=== PATIENT | male | born 1945 | race African-American/Black ===

== ENCOUNTER 2017-11-05 16:16 | Inpatient (IN) | payer OTHER ==
[~2017-11-05] VITALS: Ht 167.6 cm; Wt 96.2 kg
[~2017-11-05 16:16] MED LIST: ALLOPURINOL300 M1 PO; AMLODIPINE BESY10 M1 PO; BENTYL10 MG PO; FAMOTIDINE20 M1 PO; METFORMIN HCL500 M3 PO; PERCOCET 5-3251 EACH PO; ZOFRAN4 M1 SL
--- NOTE | 2017-11-05 16:56 | ED CARDIAC/CP/PALPITATIONS ---
History of Present Illness General Chief Complaint: Chest Pain Stated Complaint: "CP" Source: patient, family, old records Exam Limitations: no limitations Vital Signs & Intake/Output Vital Signs & Intake/Output Vital Signs Date Time Temp Pulse Resp B/P B/P Pulse O2 O2 Flow FiO2 Mean Ox Delivery Rate 11/06 1130 97.8 63 20 138/58 96 Room Air 11/06 0954 97.0 68 20 137/65 96 11/06 0945 97.0 68 20 137/65 11/06 0945 97.0 68 20 137/65 11/06 0945 97.0 68 20 137/65 11/06 0817 98.4 60 20 128/65 98 Room Air 11/06 0537 98.0 72 18 138/75 98 Room Air 11/06 0534 98.0 11/06 0040 98.0 80 18 154/78 98 Room Air 11/05 2009 98.6 72 18 160/82 98 Room Air Room Air 11/05 1816 98.2 71 18 168/82 98 Room Air 11/05 1635 97.8 68 18 167/81 98 Room Air ED Intake and Output 11/06 0000 11/05 1200 Intake Total Output Total Balance Patient 96.162 kg Weight Allergies Coded Allergies: No Known Allergies (02/25/17) Reconcile Medications Allopurinol 300 MG TABLET 1 TAB PO DAILY GOUT (Reported) Amlodipine Besylate 10 MG TABLET 1 TAB PO DAILY HTN (Reported) Famotidine 20 MG TABLET 1 TAB PO BID GERD (Reported) Losartan/Hydrochlorothiazide (Losartan-Hctz 100-25 MG Tab) 100 MG-25 MG TABLET 1 TAB PO DAILY HTN (Reported) Metformin HCl 500 MG TABLET 1 TAB PO BID DIABETES (Reported) Triage Note: PT TO TRIAGE WITH HIS DAUGHTER PT STATES THAT HE HAS BEEN HAVING L SIDE CHEST PAIN, NON RADIATING THAT STARTED AROUND 330, DESCRIBES BURNING , STATES PAIN IS A LITTLE LESS AT THIS TIME . PT HAS A MONITOR ON THAT HE HAS BEEN WEARING SINCE AUGUST Triage Nurses Notes Reviewed? yes HPI: 72M PMH HTN, T2DM, active smoker presenting with chest pain. Patient had an implantable loop recorder placed 08/18/17 for recurrent syncope. He has since been scheduled for an outpatient stress test that was supposed to occur tomorrow. Today, he had sudden onset of mid-sternal 7/10 chest pain, non- radiating, not associated with SOB, diaphoresis, syncope, lightheadedness. His chest pain is slightly better now. He has not had any similar symptoms before. He has no other cardiac history. Past History Travel History Traveled to [place] past 21 day No Medical History Any Pertinent Medical History? 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 No Review of Systems Review of Systems Constitutional: Reports: no symptoms. EENTM: Reports: no symptoms. Respiratory: Reports: no symptoms. Cardiovascular: Reports: no symptoms. GI: Reports: no symptoms. Genitourinary: Reports: no symptoms. Musculoskeletal: Reports: no symptoms. Skin: Reports: no symptoms. Neurological/Psychological: Reports: no symptoms. Hematologic/Endocrine: Reports: no symptoms. Immunologic/Allergic: Reports: no symptoms. All Other Systems: Reviewed and Negative Physical Exam Physical Exam General Appearance: well developed/nourished, no apparent distress Head: atraumatic, normal appearance Eyes: Bilateral: normal appearance. Ears, Nose, Throat: hearing grossly normal Neck: normal inspection, supple, full range of motion Respiratory: normal breath sounds, no respiratory distress Cardiovascular: regular rate/rhythm Gastrointestinal: soft, non-tender Back: normal inspection Extremities: normal inspection, normal range of motion Neurologic/Psych: awake, alert, oriented x 3, normal mood/affect Skin: intact, normal color, warm/dry Core Measures ACS in differential dx? Yes CVA/TIA Diagnosis No Sepsis Present: No Sepsis Focused Exam Completed? No Progress Differential Diagnosis: AMI, aortic dissection, atrial fibrillation, cholecystitis, CHF/pulm edema, costochondritis, hyperkalemia, hypovolemia, hyperthyroid, hyperventilation, intracranial hemorrhage, musculoskeletal pain, myocarditis, pancreatitis, pericarditis, pneumonia, pneumothorax, PSVT, pulmonary embolism, PUD/GERD, PVCs/PACs, respiratory failure, rib fracture, sepsis, unstable angina, V-fib/V-Tach, WPW syndrome Plan of Care: Orders Procedure Date/time Status Heart Healthy Diet 11/06 L Active Heart Healthy Diet 11/06 B Complete PARTIAL THROMBOPLASTIN TIME 11/06 1615 Active Weight 11/06 1129 Active Vital Signs 11/06 1129 Active Teach/Educate 11/06 1129 Active Pain Treatment and Response 11/06 1129 Active Nutritional Intake, Monitor 11/06 1129 Active Isolation 11/06 1129 Active Intake & Output 11/06 1129 Active Patient Care Conference 11/06 1129 Active Activity/Ambulation 11/06 1129 Active PARTIAL THROMBOPLASTIN TIME 11/06 0900 Complete FingerStick- Glucose 11/06 0817 Active Change service to 11/06 0713 Active Heparin Drip- ACS 11/06 0605 Active TROPONIN LEVEL 11/06 0600 Complete MAGNESIUM 11/06 0600 Complete LIPID PANEL 11/06 0600 Complete CBC WITHOUT DIFFERENTIAL 11/06 0600 Complete BASIC ELECTROLYTES PLUS BUN&CR 11/06 0600 Complete EKG 11/06 0600 Active TROPONIN LEVEL 11/06 0045 Complete PARTIAL THROMBOPLASTIN TIME 11/06 0045 Complete EKG 11/06 0045 Active PHYSICIAN CONSULT 11/06 UNK Active Pathway - chart 11/05 205 Active House Staff 11/05 2054 Active Patient Data 11/05 1856 Active ED Holding Orders 11/05 1843 Active Admit to inpatient 11/05 1843 Active Vital Signs 11/05 1843 Active Code Status 11/05 1843 Active PARTIAL THROMBOPLASTIN TIME 11/05 1738 Complete PROTHROMBIN TIME 11/05 1738 Complete TROPONIN LEVEL 11/05 1631 Complete PHOSPHORUS 11/05 1631 Complete MAGNESIUM 11/05 1631 Complete COMPREHENSIVE METABOLIC PANEL 11/05 1631 Complete CBC WITHOUT DIFFERENTIAL 11/05 1631 Complete EKG 11/05 1618 Active VTE Mechanical Prophylaxis 11/05 UNK Active Telemetry/Reproducer 11/05 UNK Active Intake & Output 11/05 UNK Active Activity/Ambulation 11/05 UNK Active Current Medications Sig/Fior Start time Last Medication Dose Stop Time Status Admin Atorvastatin Calcium 40 MG 1700 11/06 1700 AC (Lipitor) Allopurinol 300 MG DAILY 11/06 0900 AC 11/06 (Zyloprim) 0945 Amlodipine Besylate 10 MG DAILY 11/06 0900 AC 11/06 (Norvasc) 0945 Aspirin Buffered 81 MG DAILY 11/06 0900 AC 11/06 (Ecotrin) 0945 Famotidine 20 MG BID 11/06 0900 AC 11/06 (Pepcid) 0945 Hydrochlorothiazide 25 MG DAILY 11/06 09 AC 11/06 (Hydrodiuril) 0945 Metoprolol Tartrate 12.5 MG BID 11/06 09 AC 11/06 (Lopressor) 0945 Acetaminophen 650 MG Q6P PRN 11/05 2100 AC 11/06 (Tylenol) 0534 Nitroglycerin 0.5 GM Q6 11/05 1800 AC 11/06 (Nitro-Bid) 0526 Heparin Sodium 25,000 UNIT Q24H 11/05 1745 AC 11/06 (Porcine) 1015 (Heparin) Sodium Chloride 500 ML Laboratory Tests 11/06/17 0908: APTT 91 H 11/06/17 0550: Anion Gap 7, Estimated GFR > 60, BUN/Creatinine Ratio 20.0, Magnesium 2.5 H, Troponin I < 0.01, Triglycerides 124, Cholesterol 203 H, LDL Cholesterol, Calc 141 H, HDL Cholesterol 38 L, Cholesterol/HDL Ratio 5 H, CBC w Diff NO MAN DIFF REQ, RBC 3.73 L, MCV 96.5 H, MCH 32.4 H, MCHC 33.6, RDW 14.1, MPV 8.4, Gran % 44.5, Lymphocytes % 41.1, Monocytes % 10.2 H, Eosinophils % 3.8, Basophils % 0.4, Absolute Granulocytes 3.5, Absolute Lymphocytes 3.2, Absolute Monocytes 0.8 H, Absolute Eosinophils 0.3, Absolute Basophils 0 11/06/17 0127: Troponin I < 0.01, APTT 50 H 11/05/17 2109: APTT Cancelled 11/05/17 1803: PT 11.2, INR 1.03, APTT 31 11/05/17 1737: Anion Gap 10, Estimated GFR > 60, BUN/Creatinine Ratio 22.7, Glucose 152 H, Calcium 9.9, Phosphorus 3.5, Magnesium 2.4 H, Total Bilirubin 0.4, AST 32, ALT 37, Alkaline Phosphatase 78, Troponin I < 0.01, Total Protein 7.9, Albumin 4.5, Globulin 3.4, Albumin/Globulin Ratio 1.3, CBC w Diff NO MAN DIFF REQ, RBC 3.83 L, MCV 96.7 H, MCH 32.9 H, MCHC 34.0, RDW 13.9, MPV 8.5, Gran % 63.3, Lymphocytes % 23.4, Monocytes % 10.2 H, Eosinophils % 2.8, Basophils % 0.3, Absolute Granulocytes 5.5, Absolute Lymphocytes 2.0, Absolute Monocytes 0.9 H, Absolute Eosinophils 0.2, Absolute Basophils 0 Diagnostic Imaging: Viewed by Me: Radiology Read. Discussed w/RAD: Radiology Read. Radiology Impression: PATIENT: NITA MARTINO PRESENT AGE: 72 PATIENT ACCOUNT NO: [id number] : 45 LOCATION: [facility] ORDERING PHYSICIAN: Nydia GUILLEN SERVICE DATE: 11/05/17 EXAM TYPE: RAD - XRY-CHEST XRAY, TWO VIEWS PA/LATERAL CHEST RADIOGRAPH CLINICAL INFORMATION: Chest pain. COMPARISON: Chest x-ray 09/06/2016 TECHNIQUE: 2 views of the chest were obtained. FINDINGS: Loop recorder. Symmetric lung inflation. There is no focal consolidation, pleural effusion, or pneumothorax. Uncoiled thoracic aorta and mild enlargement of the cardiac silhouette unchanged. No acute osseous findings. Chronic posttraumatic changes involving the right AC joint. IMPRESSION : No acute findings. DICTATED BY: Pascual Rea MD DATE/TIME DICTATED:11/05/171709 WELLNESS ASSISTANT:BERKLEY DATE/TIME TRANSCRIBED:11/05/171709 CONFIDENTIAL, DO NOT COPY WITHOUT APPROPRIATE AUTHORIZATION. <Electronically signed in Other Vendor System> SIGNED BY: Pascual Rea MD 11/05/171715 Initial ED EKG: NSR, diffuse non-specific T wave changes Departure Departure Disposition: STILL A PATIENT Condition: Stable Clinical Impression Primary Impression: Unstable angina Referrals: Roni Ni MD (PCP/Family) Departure Forms: Customer Survey General Discharge Information Admission Note Spoke With: Sid Rahman MD Documentation of Exam: Documentation of any treatments & extenuating circumstances including Concerns Regarding Discharge (functional status, medication knowledge or non-compliance, living conditions, etc.) that warrant an admission rather than observation: chest pain in high risk patient with EKG changes consistent with unstable angina , will admi to telemetry for heparin drip, aspirin, cardiology, possible cardiac cath tomorrow. Critical Care Note Critical Care Note Critical Care Time: non-applicable
--- NOTE | 2017-11-05 17:16 | RADIOLOGY REPORT ---
PA/LATERAL CHEST RADIOGRAPH CLINICAL INFORMATION: Chest pain. COMPARISON: Chest x-ray 09/06/2016 TECHNIQUE: 2 views of the chest were obtained. FINDINGS: Loop recorder. Symmetric lung inflation. There is no focal consolidation, pleural effusion, or pneumothorax. Uncoiled thoracic aorta and mild enlargement of the cardiac silhouette unchanged. No acute osseous findings. Chronic posttraumatic changes involving the right AC joint. IMPRESSION: No acute findings.
[2017-11-05 17:46] LABS: ABSOLUTE BASOPHIL COUNT 0 /CUMM (0.0-0.2); ABSOLUTE EOSINOPHIL COUNT 0.2 /CUMM (0.0-0.7); ABSOLUTE GRANULOCYTE CT 5.5 /CUMM (1.4-6.5); ABSOLUTE MONOCYTE COUNT 0.9 /CUMM (0.10-0.60); BASOPHIL % 0.3 % (0.0-2.0); EOSINOPHIL % 2.8 % (0-5); GRANULOCYTE % 63.3 % (42.2-75.2); MEAN CORPUSCULAR HGB 32.9 PG (27.0-31.0); MEAN CORPUSCULAR VOLUME 96.7 FL (80.0-94.0); MEAN PLATELET VOLUME 8.5 FL (7.4-10.4); PLATELET COUNT 291 /CUMM (130-400); RBC DISTRIBUTION WIDTH 13.9 % (11.5-14.5); RED BLOOD CELL CT 3.83 /CUMM (4.70-6.10); WHITE BLOOD CELL COUNT 8.6 /CUMM (4.8-10.8)
[2017-11-05 18:37] LABS: PT 11.2 SEC (9.4-12.5); PTT 31 SEC (25-37)
--- NOTE | 2017-11-05 19:35 | History & Physical ---
Chay Choe 11/05/171933: General Information and HPI MD Statement: I have seen and personally examined NITA MARTINO and documented this H&P. The patient is a 72 year old M who presented with a patient stated chief complaint of CHEST PAIN. Source of Information: patient, old records Exam Limitations: no limitations History of Present Illness: 72-year-old male with past medical history significant for hypertension, diabetes, gout, and GERD presents with complaints of acute onset, midsternal chest pain. The pain started while at rest at home this afternoon. Patient denies having ever experienced this type of pain before. He describes the pain as burning, nonradiating, 6 out of 10 pain without aggravating or relieving factors. Patient denies shortness of breath, diaphoresis, nausea, vomiting, palpitations, or presyncope. Denied all symptoms on review of systems. Of note he states he has had 4 syncopal episodes in the past year. He has been referred to Dr. Montoya, and has a Linq monitor in-place for arrhythmia evaluation. He was scheduled to undergo stress test tomorrow as an outpatient. In the ED, EKG showed some T-wave flattening in his chest pain improved with nitroglycerin. First troponin was negative. he was started on heparin gtt and admitted to telemetry for unstable angina. Allergies/Medications Allergies: Coded Allergies: No Known Allergies (02/25/17) Compliance With Home Meds: GOOD Past History Travel History Traveled to [place] past 21 day No Medical History Neurological: NONE EENT: NONE Cardiovascular: hypertension Respiratory: NONE Gastrointestinal: GERD Hepatic: NONE Renal: NONE Musculoskeletal: gout Psychiatric: NONE Endocrine: diabetes Blood Disorders: NONE Cancer(s): NONE COFFEE GRINDER/Reproductive: NONE Surgical History Surgical History: non-contributory Past Family/Social History Psychosocial History Where do you live? Home Who Do You Live With? self Services at Home: None Primary Language: Kinyarwanda Smoking Status: Current Everyday Smoker (x3 cigars) ETOH Use: occasional use Illicit Drug Use: denies illicit drug use Functional Ability ADLs Independent: dressing, eating, toileting, bathing. Ambulation: independent IADLs Independent: shopping, housework, finances, food prep, telephone, transportation , medication admin. 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 EENTM: Reports: no symptoms. Cardiovascular: Reports: chest pain. Denies: orthopena, palpitations, syncope. Respiratory: Denies: cough, orthopnea, short of breath. GI: Denies: abdominal pain, constipation, diarrhea, nausea, vomiting. Genitourinary: Denies: dysuria, frequency. Musculoskeletal: Reports: no symptoms. Skin: Reports: no symptoms. Neurological/Psychological: Reports: no symptoms. Hematologic/Endocrine: Reports: no symptoms. Immunologic/Allergic: Reports: no symptoms. All Other Systems: Reviewed and Negative Exam & Diagnostic Data Last 24 Hrs of Vital Signs/I&O Vital Signs Date Time Temp Pulse Resp B/P B/P Pulse O2 O2 Flow FiO2 Mean Ox Delivery Rate 11/05 2008 98.6 72 18 160/82 98 Room Air Room Air 11/05 1816 98.2 71 18 168/82 98 Room Air 11/05 1635 97.8 68 18 167/81 98 Room Air Intake & Output 11/06 0800 11/06 0000 11/05 1600 Intake Total Output Total Balance Patient 212 lb Weight Physical Exam General Appearance Alert, Oriented X3, Cooperative, No Acute Distress Skin No Rashes, No Breakdown, No Significant Lesion Skin Temp/Moisture Exam: Warm/Dry HEENT Atraumatic, PERRLA, EOMI, Mucous Membr. moist/pink Neck Supple, No JVD, No thryomegaly Cardiovascular Regular Rate, Normal S1, Normal S2, No Murmurs Lungs Clear to Auscultation, Normal Air Movement Abdomen Normal Bowel Sounds, Soft, No Tenderness, No Masses Extremities No Cyanosis, Normal Pulses, +1 nonpitting bilateral lower extremity edema Last 24 Hrs of Labs/Earnest: Laboratory Tests 11/05/172108: APTT Cancelled 11/05/17 1803: PT 11.2, INR 1.03, APTT 31 11/05/17 1737: Anion Gap 10, Estimated GFR > 60, BUN/Creatinine Ratio 22.7, Glucose 152 H, Calcium 9.9, Phosphorus 3.5, Magnesium 2.4 H, Total Bilirubin 0.4, AST 32, ALT 37, Alkaline Phosphatase 78, Troponin I < 0.01, Total Protein 7.9, Albumin 4.5, Globulin 3.4, Albumin/Globulin Ratio 1.3, CBC w Diff NO MAN DIFF REQ, RBC 3.83 L, MCV 96.7 H, MCH 32.9 H, MCHC 34.0, RDW 13.9, MPV 8.5, Gran % 63.3, Lymphocytes % 23.4, Monocytes % 10.2 H, Eosinophils % 2.8, Basophils % 0.3, Absolute Granulocytes 5.5, Absolute Lymphocytes 2.0, Absolute Monocytes 0.9 H, Absolute Eosinophils 0.2, Absolute Basophils 0 Diagnostic Data EKG Results Sinus rhythm w/ nonspecific lateral T wave flattening CXR Results No acute findings. Assessment/Plan Assessment: 72-year-old man with past medical history of hypertension, diabetes, gout, GERD who presents with acute onset midsternal chest pain. Problem list/plan: Acute chest pain -Admit to telemetry for monitoring -Vitals, I's and O's per protocol -Differential includes ACS (likely UA) and GERD -Initial troponin was negative -Trend troponins and EKGs -Start patient on heparin drip for anticoagulation -Start patient on atorvastatin and metoprolol for prophylaxis -Let Dr. Montoya know the patient is here to decide if consult needed Chronic conditions - HTN, GERD, gout -Continue home medications at home dosage: metformin, famotidine, allopurinol, amlodipine DVT prophylaxis: Heparin drip and ALPS Heart healthy diet Patient is full code As Ranked By This Provider Problem List: 1. Unstable angina Core Measures/Misc (12/04) Cerebrovascular Accident CVA/TIA Diagnosis: No Sepsis (View protocol) If YES complete Sepsis Event Note If YES complete Sepsis Event Note Osbaldo Arce MD 11/05/17 6247: General Information and HPI MD Statement: I have seen and personally examined NITA MARTINO and documented this H&P. The patient is a 72 year old M who presented with a patient stated chief complaint of chest pain. Source of Information: patient, old records Exam Limitations: no limitations History of Present Illness: 72 year old male with past medical history significant for HTN, DM, gout, and GERD presents with complaints of acute onset chest pain. The chest pain started while at rest at home this afternoon. He says hes never had any pain like it before. He described the pain as substernal, burning, nonradiating, 6/10 in intensity and without aggravating or relieving factors. He denied any associated dyspnea, diaphoresis, nausea, vomiting, palpitations, or presyncope. He denied anything on review of systems including fevers, chills, cough, sore throat, recent illness, edema, fatigue, diarrhea, or dysuria. Of note, he states he has had four syncopal episodes in the past year and was never evaluated at the hospital. He went and saw his primary, Dr. Ni, who referred him to Dr. Montoya. He had a Linq monitor implanted for arrhythmia evaluation but has never been told he had an irregular rhythm. He was undergoing stress testing to evaluate for myocardial ischemia and was scheduled for stress imaging tomorrow as an outpatient. His syncopal episodes were preceded by feeling lightheaded and nauseous and then waking up on the floor without recollection of what had happened. He is a current everyday smoker, 3 cigars, and drinks alcohol approximately 3 beers on the weekend. He has no known significant family history. In the ED, he had some T wave flattening on the lateral leads of his EKG and his chest pain improved after nitroglycerin and is now resolved. His first troponin was negative. He was started on a heparin drip and admitted to telemetry for unstable angina. 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 Home Who Do You Live With? self Services at Home: None Primary Language: Kinyarwanda Smoking Status: Current Everyday Smoker ETOH Use: occasional use Illicit Drug Use: denies illicit drug use Functional Ability ADLs Independent: dressing, eating, toileting, bathing. Ambulation: independent IADLs Independent: shopping, housework, finances, food prep, telephone, transportation , medication admin. Review of Systems Review of Systems Constitutional: Denies: chills, diaphoresis, fever, malaise. EENTM: Reports: no symptoms. Cardiovascular: Reports: chest pain, syncope. Denies: orthopena, palpitations. Respiratory: Denies: cough, short of breath. GI: Denies: abdominal pain, constipation, diarrhea, nausea, vomiting. Genitourinary: Denies: dysuria, frequency. Musculoskeletal: Reports: no symptoms. Skin: Reports: no symptoms. Neurological/Psychological: Reports: no symptoms. Hematologic/Endocrine: Reports: no symptoms. Immunologic/Allergic: Reports: no symptoms. All Other Systems: Reviewed and Negative Exam & Diagnostic Data Last 24 Hrs of Vital Signs/I&O Vital Signs Date Time Temp Pulse Resp B/P B/P Pulse O2 O2 Flow FiO2 Mean Ox Delivery Rate 11/05 2008 98.6 72 18 160/82 98 Room Air Room Air 11/05 1816 98.2 71 18 168/82 98 Room Air 11/05 1635 97.8 68 18 167/81 98 Room Air Physical Exam General Appearance Alert, Oriented X3, Cooperative, No Acute Distress Neck Supple, No JVD, +2 Carotid Pulse wo Bruit Cardiovascular Regular Rate, Normal S1, Normal S2, No Murmurs Lungs Clear to Auscultation, Normal Air Movement Abdomen Normal Bowel Sounds, Soft, No Tenderness, No Masses Extremities No Clubbing, No Cyanosis, Normal Pulses, mild b/l LE edema Last 24 Hrs of Labs/Earnest: Laboratory Tests 11/05/17 2109: APTT Cancelled 11/05/17 1803: PT 11.2, INR 1.03, APTT 31 11/05/17 1737: Anion Gap 10, Estimated GFR > 60, BUN/Creatinine Ratio 22.7, Glucose 152 H, Calcium 9.9, Phosphorus 3.5, Magnesium 2.4 H, Total Bilirubin 0.4, AST 32, ALT 37, Alkaline Phosphatase 78, Troponin I < 0.01, Total Protein 7.9, Albumin 4.5, Globulin 3.4, Albumin/Globulin Ratio 1.3, CBC w Diff NO MAN DIFF REQ, RBC 3.83 L, MCV 96.7 H, MCH 32.9 H, MCHC 34.0, RDW 13.9, MPV 8.5, Gran % 63.3, Lymphocytes % 23.4, Monocytes % 10.2 H, Eosinophils % 2.8, Basophils % 0.3, Absolute Granulocytes 5.5, Absolute Lymphocytes 2.0, Absolute Monocytes 0.9 H, Absolute Eosinophils 0.2, Absolute Basophils 0 Diagnostic Data EKG Results sinus rhythm with lateral T wave flattening Assessment/Plan Assessment: 72 year old male with PMH of HTN and DM presents with acute onset substernal chest pain relieved with nitroglycerin admitted for unstable angina. Unstable angina: Monitor on telemetry for arrythmia Check serial troponins and EKGs to evaluate for myocardial ischemia Start aspirin, metoprolol, atorvastatin, and nitropaste for angina Can give morphine prn Check lipid panel Cardiology consultation Was scheduled for an outpatient stress testing, consider performing as an inpatient Continue heparin drip Consider echocardiogram HTN: Continue losartan, HCTZ, amlodipine Added nitropaste GERD, gout DM: Hold metformin Accuchecks TIDAC/HS Novolog sliding scale insulin GERD: Continue famotidin Gout: Continue allopurinol Heart healthy diet DVT ppx-heparin gtt Full code As Ranked By This Provider Problem List: 1. Unstable angina Core Measures/Misc (12/04) Acute Coronary Syndrome ACS Diagnosis: Yes Last Known EF % 60 (unknown) Congestive Heart Failure Congestive Heart Failure Diagnosis No Cerebrovascular Accident CVA/TIA Diagnosis: No VTE (View Protocol) VTE Risk Factors Age>40 No Mechanical VTE Prophylaxis d/t N/A MechProphylax Ordered No VTE Pharm Prophylaxis d/t NA PharmProphylax ordered Sepsis (View protocol) Sepsis Present: No If YES complete Sepsis Event Note If YES complete Sepsis Event Note Josiah RAPHAELVienna 11/06/17 0205: General Information and HPI MD Statement: I have seen and personally examined NITA MARTINO and documented this H&P. The patient is a 72 year old M who presented with a patient stated chief complaint of []. Source of Information: patient Allergies/Medications Home Med list Allopurinol 300 MG TABLET 1 TAB PO DAILY GOUT (Reported) Amlodipine Besylate 10 MG TABLET 1 TAB PO DAILY HTN (Reported) Famotidine 20 MG TABLET 1 TAB PO BID GERD (Reported) Losartan/Hydrochlorothiazide (Losartan-Hctz 100-25 MG Tab) 100 MG-25 MG TABLET 1 TAB PO DAILY HTN (Reported) Metformin HCl 500 MG TABLET 1 TAB PO BID DIABETES (Reported) Past History Medical History Cardiovascular: hypertension Gastrointestinal: GERD Musculoskeletal: gout Past Family/Social History Psychosocial History Smoking Status: Current Everyday Smoker ETOH Use: occasional use Illicit Drug Use: denies illicit drug use Employment History Employment Employed Review of Systems Review of Systems Constitutional: Reports: see HPI. Exam & Diagnostic Data Last 24 Hrs of Vital Signs/I&O Vital Signs Date Time Temp Pulse Resp B/P B/P Pulse O2 O2 Flow FiO2 Mean Ox Delivery Rate 11/06 0040 98.0 80 18 154/78 98 Room Air 11/05 2008 98.6 72 18 160/82 98 Room Air Room Air 11/05 1816 98.2 71 18 168/82 98 Room Air 11/05 1635 97.8 68 18 167/81 98 Room Air Intake & Output 11/06 0800 11/06 0000 11/05 1600 Intake Total Output Total Balance Patient 212 lb Weight Physical Exam General Appearance Alert, Oriented X3, Cooperative, No Acute Distress Skin No Rashes, No Breakdown, No Significant Lesion Skin Temp/Moisture Exam: Warm/Dry Sepsis Skin Exam (color): Normal for Ethnicity HEENT Atraumatic, PERRLA, EOMI, Mucous Membr. moist/pink Neck Supple, No JVD, No thryomegaly Cardiovascular Regular Rate, Normal S1 Lungs Clear to Auscultation, Normal Air Movement Abdomen Normal Bowel Sounds, Soft, No Tenderness, No Hepatospenomegaly, No Masses Neurological Normal Speech Last 24 Hrs of Labs/Earnest: Laboratory Tests 11/06/17 0127: Troponin I Pending, APTT Pending 11/05/17 2109: APTT Cancelled 11/05/17 1803: PT 11.2, INR 1.03, APTT 31 11/05/17 1737: Anion Gap 10, Estimated GFR > 60, BUN/Creatinine Ratio 22.7, Glucose 152 H, Calcium 9.9, Phosphorus 3.5, Magnesium 2.4 H, Total Bilirubin 0.4, AST 32, ALT 37, Alkaline Phosphatase 78, Troponin I < 0.01, Total Protein 7.9, Albumin 4.5, Globulin 3.4, Albumin/Globulin Ratio 1.3, CBC w Diff NO MAN DIFF REQ, RBC 3.83 L, MCV 96.7 H, MCH 32.9 H, MCHC 34.0, RDW 13.9, MPV 8.5, Gran % 63.3, Lymphocytes % 23.4, Monocytes % 10.2 H, Eosinophils % 2.8, Basophils % 0.3, Absolute Granulocytes 5.5, Absolute Lymphocytes 2.0, Absolute Monocytes 0.9 H, Absolute Eosinophils 0.2, Absolute Basophils 0 Core Measures/Misc (12/04) Sepsis (View protocol) If YES complete Sepsis Event Note If YES complete Sepsis Event Note Attending MD Review Statement Attending Statement Attending MD Statement: examined this patient, discuss w/resident/PA/LIQUOR RECTIFIER, agreed w/resident/PA/LIQUOR RECTIFIER, reviewed EMR data (avail), amended to note Attending Assessment/Plan: This patient is a 72 year old male with a significant past medical history for HTN, DM, gout, and GERD presents with complaints of acute onset chest pain. The chest pain started while at rest at home this afternoon. He never had any pain like it before. He described the pain as substernal, burning, nonradiating, 6/ 10 in intensity and without aggravating or relieving factors. His syncopal episodes were preceded by feeling lightheaded and nauseous and then waking up on the floor without recollection of what had happened. In the ED, his blood pressure was slightly elevated 160s over 80s, vital signs stable, B UN 25, and troponin negative. EKGT wave flattening on the lateral leads of his EKG and CXR w/o significant findings. The patient will be admitted to telemetry for chest pain, unstable angina. Will begin heparin drip, serial troponins, serial EKGs and cardiology consultation. FULL CODE
[2017-11-05] MEDS ORDERED: LOSARTAN-HCTZ1 EAC2 PO (23:45)
[2017-11-06 01:44] LABS: PTT 50 SEC (25-37)
[2017-11-06 06:02] LABS: ABSOLUTE BASOPHIL COUNT 0 /CUMM (0.0-0.2); ABSOLUTE EOSINOPHIL COUNT 0.3 /CUMM (0.0-0.7); ABSOLUTE GRANULOCYTE CT 3.5 /CUMM (1.4-6.5); ABSOLUTE LYMPH COUNT 3.2 /CUMM (1.2-3.4); ABSOLUTE MONOCYTE COUNT 0.8 /CUMM (0.10-0.60); BASOPHIL % 0.4 % (0.0-2.0); EOSINOPHIL % 3.8 % (0-5); GRANULOCYTE % 44.5 % (42.2-75.2); MEAN CORPUSCULAR HGB 32.4 PG (27.0-31.0); MEAN CORPUSCULAR HGB CONC 33.6 G/DL (33.0-37.0); MEAN CORPUSCULAR VOLUME 96.5 FL (80.0-94.0); MEAN PLATELET VOLUME 8.4 FL (7.4-10.4); PLATELET COUNT 272 /CUMM (130-400); RBC DISTRIBUTION WIDTH 14.1 % (11.5-14.5); RED BLOOD CELL CT 3.73 /CUMM (4.70-6.10); WHITE BLOOD CELL COUNT 7.9 /CUMM (4.8-10.8)
--- NOTE | 2017-11-06 08:49 | PN- Housestaff ---
YuenVenanciopam 11/06/17 0848: Subjective Follow-up For: chest pain Subjective: Patient lying comfortably in bed, daughter is at bedside. Patient has no c/o. Denies chest pain, SOB, palpitations. Is inquiring if he can go home today, discussed patients pending tests and prognosis. Denies fevers, night sweats and chills. Review of Systems Constitutional: Reports: see HPI. Objective Last 24 Hrs of Vital Signs/I&O Vital Signs Date Time Temp Pulse Resp B/P B/P Pulse O2 O2 Flow FiO2 Mean Ox Delivery Rate 11/06 1505 98.1 66 2 156/70 98 Room Air 11/06 1130 97.8 63 20 138/58 96 Room Air 11/06 0954 97.0 68 20 137/65 96 11/06 0945 97.0 68 20 137/65 11/06 0945 97.0 68 20 137/65 11/06 0945 97.0 68 20 137/65 11/06 0817 98.4 60 20 128/65 98 Room Air 11/06 0537 98.0 72 18 138/75 98 Room Air 11/06 0534 98.0 11/06 0040 98.0 80 18 154/78 98 Room Air Intake & Output 11/06 1600 11/06 0800 11/06 0000 Intake Total 400 380 Output Total 600 300 Balance -200 80 Intake, Oral 400 380 Output, Urine 600 300 Patient 212 lb 212 lb Weight Physical Exam General Appearance: Alert, Oriented X3, Cooperative Skin: No Rashes Cardiovascular: Regular Rate, Normal S1, Normal S2, LINQ on left chest, no erythema, warmth or discharge appreciated Lungs: Clear to Auscultation, Normal Air Movement Abdomen: Normal Bowel Sounds, Soft, No Tenderness Assessment/Plan Assessment: 72 year old male with PMH of HTN and DM presents with acute onset substernal chest pain relieved with nitroglycerin admitted for unstable angina. Patient #Exertional chest pain: Unknown etiology, patient has multiple risk factors for CAD, along with abnormal stress test completely recently in the outpatient setting with Dr. Salinas's office. Tropnonins are negative in house -Patient will require cardiac catheterization, and possible PCI. Will be transferred to [facility] on 11/07/17. -Hold Losartan 100mg -NPO after midnight -continue heparin drip -Clopidogrel loading dose with 375mg today, 75 mg in AM HTN: -Continue HCTZ 25mg -Continue amlodipine 10mg -Will hold ARB for cardiac catherterization on 11/07/17 #Hyperlipidemia -Atorvastatin 40mg #DM: -Hold metformin -Accuchecks TIDAC/HS -Novolog sliding scale insulin #GERD: -Continue famotidin #Gout: -Continue allopurinol Heart healthy diet DVT ppx-heparin gtt Full code Problem List: 1. Exertional chest pain Pain Ratin Pain Location: substernal Pain Goal: Remain pain free Pain Plan: morphine, tylenol Tomorrow's Labs & Rationales: none Joelle RAPHAEL,Ariannecollin 11/06/17 1224: Attending MD Review Statement Attending Statement Attending MD Statement: examined this patient, discuss w/resident/PA/PASSPORT SUPPORT ASSOCIATE, agreed w/resident/PA/PASSPORT SUPPORT ASSOCIATE, discussed with family, reviewed EMR data (avail), discussed with nursing, discussed with case mgmt, amended to note Attending Assessment/Plan: Patient seen and examined. Heartily eating his lunch and not in any acute distress. Denies chest pain or shortness of breath. Family present to the bed case was discussed in detail with his direct support professional caregiver. On account of his positive exercise stress as an outpatient and recurrent complaints of chest pain he will be scheduled for cardiac catheterization tomorrow. Patient is currently asymptomatic. Hemodynamically stable with negative troponins. He will be monitored in the hospital overnight and transferred for cardiac catheterization in the morning. Continue antiplatelet therapy with aspirin. Load patient with Plavix 300 mg and continue with some 5 mg daily. Continue atorvastatin and beta-rocío therapy. Continue nitroglycerin as needed pain. Continue anticoagulant therapy with heparin infusion.
[2017-11-06 09:30] LABS: PTT 91 SEC (25-37)
[2017-11-06 11:30] VITALS: BP 138/58
--- NOTE | 2017-11-06 12:27 | Cons- Cardiology ---
General Information and HPI Consulting Request Date of Consult: 11/06/17 Requested By: Dioni Lai MD Reason for Consult: Chest Pain Source of Information: patient, old records History of Present Illness: This is a pleasant 72-year-old male with a past medical history of hypertension, gout, diabetes, and syncope status post recent implantable loop recorder who presents to [facility] with a chief complaint of moderate intensity midsternal chest discomfort that occurred at rest without obvious exacerbating or alleviating factors; not associated with significant shortness of breath or palpitations; denies a recent recurrent syncope. The discomfort was not reproducible and was relieved prior to the application of nitroglycerin. He had recently seen me in the office for episodes of recurrent syncope of unclear etiology and underwent cardiac workup including echocardiogram, Holter monitor, and exercise stress test. The exercise stress test was positive for ischemic EKG changes and he was planned for outpatient nuclear stress test. Allergies/Medications Allergies: Coded Allergies: No Known Allergies (02/25/17) Home Med List: Allopurinol 300 MG TABLET 1 TAB PO DAILY GOUT (Reported) Amlodipine Besylate 10 MG TABLET 1 TAB PO DAILY HTN (Reported) Famotidine 20 MG TABLET 1 TAB PO BID GERD (Reported) Losartan/Hydrochlorothiazide (Losartan-Hctz 100-25 MG Tab) 100 MG-25 MG TABLET 1 TAB PO DAILY HTN (Reported) Metformin HCl 500 MG TABLET 1 TAB PO BID DIABETES (Reported) Current Medications: Current Medications Sig/Fior Start time Last Medication Dose Route Stop Time Status Admin Acetaminophen 0 .STK-MED ONE 11/06 0530 DC PO Acetaminophen 650 MG Q6P PRN 11/05 2100 AC 11/06 PO 0534 Allopurinol 300 MG DAILY 11/06 09 AC 11/06 PO 0945 Amlodipine Besylate 10 MG DAILY 11/06 0900 AC 11/06 PO 0945 Aspirin 0 .STK-MED ONE 11/05 1904 DC PO Aspirin 325 MG ONCE ONE 11/05 1730 DC 11/05 PO 11/05 1731 1800 Aspirin Buffered 81 MG DAILY 11/06 0900 AC 11/06 PO 0945 Atorvastatin Calcium 40 MG 1700 11/06 1700 AC PO Famotidine 20 MG BID 11/06 09 AC 11/06 PO 0945 Heparin Sodium 0 .STK-MED ONE 11/05 1904 DC (Porcine) .ROUTE Heparin Sodium 4,000 UNIT ONCE ONE 11/05 1745 DC 11/05 (Porcine) IV 11/05 1746 1800 Heparin Sodium 25,000 UNIT Q24H 11/05 174 AC 11/06 (Porcine) IV 1015 Sodium Chloride 500 ML Hydrochlorothiazide 25 MG DAILY 11/06 0900 AC 11/06 PO 0945 Losartan Potassium 100 MG DAILY 11/06 0900 DC 11/06 PO 0945 Metoprolol Tartrate 12.5 MG BID 11/06 09 AC 11/06 PO 0945 Nitroglycerin 0 .STK-MED ONE 11/05 1904 DC TOP Nitroglycerin 0.5 GM Q6 11/05 1800 AC 11/06 TOP 0526 Review of Systems Review of Systems: Review of systems as per HPI. The remainder of a 10 point review of systems was reviewed and was otherwise negative. 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 Home Who Do You Live With? self Services at Home: None Primary Language: Portuguese Smoking Status: Current Everyday Smoker ETOH Use: occasional use Illicit Drug Use: denies illicit drug use Functional Ability ADLs Independent: dressing, eating, toileting, bathing. Ambulation: independent IADLs Independent: shopping, housework, finances, food prep, telephone, transportation , medication admin. 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 Exam & Diagnostic Data Vital Signs and I&O Vital Signs Date Time Temp Pulse Resp B/P B/P Pulse O2 O2 Flow FiO2 Mean Ox Delivery Rate 11/06 1130 97.8 63 20 138/58 96 Room Air 11/06 0954 97.0 68 20 137/65 96 11/06 0945 97.0 68 20 137/65 11/06 0945 97.0 68 20 137/65 11/06 0945 97.0 68 20 137/65 11/06 0817 98.4 60 20 128/65 98 Room Air 11/06 0537 98.0 72 18 138/75 98 Room Air 11/06 0534 98.0 11/06 0040 98.0 80 18 154/78 98 Room Air 11/05 2008 98.6 72 18 160/82 98 Room Air Room Air 11/05 1816 98.2 71 18 168/82 98 Room Air 11/05 1635 97.8 68 18 167/81 98 Room Air Intake & Output 11/06 1600 11/06 0800 11/06 0000 11/05 1600 11/05 0800 11/05 0000 Intake Total 380 Output Total 300 Balance 80 Intake, Oral 380 Output, Urine 300 Patient 212 lb 212 lb Weight Physical Exam: General: no apparent distress. Alert. Eyes: No obvious scleral icterus. HEENT: No jugular venous distention or abnormal jugular venous pulsations. Cardiovascular: Normal intensity S1/S2. Left-sided subcutaneous LINQ without erythema Respiratory: Lungs clear to auscultation bilaterally. Abdomen: Soft, nontender with no guarding or rebound tenderness. Musculoskeletal: No clubbing or cyanosis noted Skin: warm Neurologic: No gross focal deficits noted. Labs/Earnest Results: Laboratory Tests 11/06 11/06 11/06 0908 0550 0127 Chemistry Sodium (137 - 145 mmol/L) 137 Potassium (3.5 - 5.1 mmol/L) 4.0 Chloride (98 - 107 mmol/L) 103 Carbon Dioxide (22 - 30 mmol/L) 27 Anion Gap (5 - 16) 7 BUN (9 - 20 mg/dL) 22 H Creatinine (0.7 - 1.2 mg/dL) 1.1 Estimated GFR (>60 ml/min) > 60 BUN/Creatinine Ratio (7 - 25 %) 20.0 Magnesium (1.6 - 2.3 mg/dL) 2.5 H Troponin I (<0.11 ng/ml) < 0.01 < 0.01 Triglycerides (<150 mg/dL) 124 Cholesterol (< 200 MG/DL) 203 H LDL Cholesterol, Calc (65 - 129 mg/dL) 141 H HDL Cholesterol (40 - 60 mg/dL) 38 L Cholesterol/HDL Ratio (0.00 - 4.88 %) 5 H Coagulation APTT (25 - 37 SEC) 91 H 50 H Hematology CBC w Diff NO MAN DIFF REQ WBC (4.8 - 10.8 /CUMM) 7.9 RBC (4.70 - 6.10 /CUMM) 3.73 L Hgb (14.0 - 18.0 G/DL) 12.1 L Hct (42 - 52 %) 36.0 L MCV (80.0 - 94.0 FL) 96.5 H MCH (27.0 - 31.0 PG) 32.4 H MCHC (33.0 - 37.0 G/DL) 33.6 RDW (11.5 - 14.5 %) 14.1 Plt Count (130 - 400 /CUMM) 272 MPV (7.4 - 10.4 FL) 8.4 Gran % (42.2 - 75.2 %) 44.5 Lymphocytes % (20.5 - 51.1 %) 41.1 Monocytes % (1.7 - 9.3 %) 10.2 H Eosinophils % (0 - 5 %) 3.8 Basophils % (0.0 - 2.0 %) 0.4 Absolute Granulocytes (1.4 - 6.5 /CUMM) 3.5 Absolute Lymphocytes (1.2 - 3.4 /CUMM) 3.2 Absolute Monocytes (0.10 - 0.60 /CUMM) 0.8 H Absolute Eosinophils (0.0 - 0.7 /CUMM) 0.3 Absolute Basophils (0.0 - 0.2 /CUMM) 0 11/05 11/05 11/05 2109 1803 1737 Chemistry Sodium (137 - 145 mmol/L) 137 Potassium (3.5 - 5.1 mmol/L) 5.5 H Chloride (98 - 107 mmol/L) 100 Carbon Dioxide (22 - 30 mmol/L) 26 Anion Gap (5 - 16) 10 BUN (9 - 20 mg/dL) 25 H Creatinine (0.7 - 1.2 mg/dL) 1.1 Estimated GFR (>60 ml/min) > 60 BUN/Creatinine Ratio (7 - 25 %) 22.7 Glucose (65 - 99 mg/dL) 152 H Calcium (8.4 - 10.2 mg/dL) 9.9 Phosphorus (2.5 - 4.5 mg/dL) 3.5 Magnesium (1.6 - 2.3 mg/dL) 2.4 H Total Bilirubin (0.2 - 1.3 mg/dL) 0.4 AST (17 - 59 U/L) 32 ALT (21 - 72 U/L) 37 Alkaline Phosphatase (< 127 U/L) 78 Troponin I (<0.11 ng/ml) < 0.01 Total Protein (6.3 - 8.2 g/dL) 7.9 Albumin (3.5 - 5.0 g/dL) 4.5 Globulin (1.9 - 4.2 gm/dL) 3.4 Albumin/Globulin Ratio (1.1 - 2.2 %) 1.3 Coagulation PT (9.4 - 12.5 SEC) 11.2 INR (0.90 - 1.17) 1.03 APTT (25 - 37 SEC) Cancelled 31 Hematology CBC w Diff NO MAN DIFF REQ WBC (4.8 - 10.8 /CUMM) 8.6 RBC (4.70 - 6.10 /CUMM) 3.83 L Hgb (14.0 - 18.0 G/DL) 12.6 L Hct (42 - 52 %) 37.0 L MCV (80.0 - 94.0 FL) 96.7 H MCH (27.0 - 31.0 PG) 32.9 H MCHC (33.0 - 37.0 G/DL) 34.0 RDW (11.5 - 14.5 %) 13.9 Plt Count (130 - 400 /CUMM) 291 MPV (7.4 - 10.4 FL) 8.5 Gran % (42.2 - 75.2 %) 63.3 Lymphocytes % (20.5 - 51.1 %) 23.4 Monocytes % (1.7 - 9.3 %) 10.2 H Eosinophils % (0 - 5 %) 2.8 Basophils % (0.0 - 2.0 %) 0.3 Absolute Granulocytes (1.4 - 6.5 /CUMM) 5.5 Absolute Lymphocytes (1.2 - 3.4 /CUMM) 2.0 Absolute Monocytes (0.10 - 0.60 /CUMM) 0.9 H Absolute Eosinophils (0.0 - 0.7 /CUMM) 0.2 Absolute Basophils (0.0 - 0.2 /CUMM) 0 Diagnostic Data EKG Results Tracing was personally reviewed and shows sinus rhythm with borderline T-wave abnormality CXR Results No CHF or pneumonia Other Results Telemetry tracings were personally reviewed and shows sinus rhythm Recent outpatient echo cardio gram showed normal left ventricular function Recent outpatient stress test was positive for ECG evidence of ischemia Assessment/Plan Assessment/Plan 1. Chest pain, new onset with recent outpatient positive stress test 2. History of recurrent syncope status post implantable loop recorder with no recent abnormal events 3. History of hypertension 4. History of diabetes 5. History of gout The patient presents with chest discomfort of unclear etiology. Serial troponins are negative but the patient does have cardiac risk factors and also recently had an outpatient abnormal stress test. I had an extensive discussion with the patient regarding further options for additional ischemic testing and at this time we agreed to proceed with definitive coronary assessment with cardiac catheterization with possible PCI. Can continue on intravenous heparin for now along with aspirin and statin therapy. Keep n.p.o. after midnight in anticipation of cardiac catheterization. Hold ARB prior to cardiac catheterization. Case discussed at length with the patient and the medical team. Delvin Montoya MD [facility] Consult Acknowledgment - Thank you for your consult request.
--- NOTE | 2017-11-06 12:48 | Discharge Summary ---
Visit Information Visit Dates Admission Date: 11/05/17 Discharge Date: 11/07/17 Hospital Course Course Attending Physician: Dioni Lai MD [facility]: 72-year-old man with past medical history of hypertension, diabetes, gout, GERD who presented with acute onset midsternal chest pain. Patient was admitted to the telemetry floor for the management of following issues; 1. Chest pain, new onset with recent outpatient positive stress test 2. History of recurrent syncope status post implantable loop recorder with no recent abnormal events 3. History of hypertension, diabetes, gout Patient presented with chest discomfort of unclear etiology. Serial troponins were negative. Cardiology consult was called and given cardiac risk factors and a recent outpatient abnormal stress test, patient was transferred for coronary assessment with cardiac catheterization with possible PCI. Intravenous heparin was continued and patient was also started on aspirin, plavix, atorvastatin and low dose metoprolol. Patient was kept NPO overnight and Losartan was held prior to cardiac catheterization. Rest of his hold medications were continued. Allergies: Coded Allergies: No Known Allergies (02/25/17) Significant Procedures: XRY-CHEST XRAY, TWO VIEWS FINDINGS: Loop recorder. Symmetric lung inflation. There is no focal consolidation, pleural effusion, or pneumothorax. Uncoiled thoracic aorta and mild enlargement of the cardiac silhouette unchanged. No acute osseous findings. Chronic posttraumatic changes involving the right AC joint. IMPRESSION: No acute findings. Disposition Summary Disposition Principal Diagnosis: Chest Pain Additional Diagnosis: # History of recurrent syncope status post implantable loop recorder with no recent abnormal event # History of hypertension, diabetes, gout Discharge Disposition: other general hospital Discharge Instructions General Discharge Information Code Status: Full Code Patient's Diet: Heart Healthy Patient's Activity: As tolerated Follow-Up Instructions/Appts: Patient advised to follow-up with his PCP and manager business intelligence within a week after discharge Medications at Discharge Discharge Medications: Continue taking these medications: Amlodipine Besylate (Amlodipine Besylate) 10 MG TABLET 1 Tablet ORAL DAILY Qty = 90 Comments: Last Taken: 11/07/17 Time: 8:00 AM Metformin HCl (Metformin HCl) 500 MG TABLET 1 Tablet ORAL TWICE DAILY Qty = 90 Comments: NOT GIVEN DURING THIS HOSPITAL STAY Famotidine (Famotidine) 20 MG TABLET 1 Tablet ORAL TWICE DAILY Qty = 180 Comments: Last Taken: 11/07/17 Time: 8:00 AM Allopurinol (Allopurinol) 300 MG TABLET 1 Tablet ORAL DAILY Qty = 90 Comments: Last Taken: 11/07/17 Time: 8:00 AM Losartan/Hydrochlorothiazide (Losartan-Hctz 100-25 MG Tab) 100 MG-25 MG TABLET 1 Tablet ORAL DAILY Qty = 30 Comments: Last Taken: 11/07/17 Time: 8:00 AM Start taking the following new medications: Clopidogrel Bisulfate (Plavix) 75 MG TABLET 75 Milligram ORAL DAILY Qty = 30 No Refills Comments: Last Taken: 11/07/17 Time: 8:00 AM Atorvastatin Calcium (Atorvastatin Calcium) 40 MG TABLET 40 Milligram ORAL 5 PM Qty = 30 No Refills Comments: Last Taken: 11/07/17 Time: 8:00 AM Metoprolol Tartrate (Metoprolol Tartrate) 25 MG TABLET 12.5 Milligram ORAL TWICE DAILY Qty = 30 No Refills Comments: Last Taken: 11/06/17 Time: 10:00 PM Aspirin (Ecotrin*) 81 MG TABLET.DR 1 Tablet ORAL DAILY Qty = 30 No Refills Comments: Last Taken: 11/07/17 Time: 8:00 am Heparin Sod,Porcine/0.9 % NaCl (Heparin 25,000 Unit/500 Ml-Ns) 25,000 UNIT/500 ML (50 UNIT/ML) IV.SOLN 0 IV DAILY Qty = 1 No Refills Comments: Heparin running through IV #22G LH 11/05/17 @ 27.7 mL/hr 14.4 units/kgs/ hr. Last PTT 66 @ 0257. Next PTT due @ 1500. Copies To: Jan RAPHAEL,[facility]; Last RAPHAEL,Roni Valentin Attending MD Review Statement Documenting Attending: Joelle RAPHAEL,Dioni Other Findings: Medically stable to be transferred for cardiac catheterization today.
[2017-11-06 15:05] VITALS: BP 156/70
[2017-11-06 18:05] LABS: PTT 34 SEC (25-37)
--- NOTE | 2017-11-06 21:32 | Patient Discharge Instructions ---
Discharge Instructions General Discharge Information You were seen/treated for: Exertional chest pain You had these procedures: no procedures were performed Watch for these problems: Fever, chest pain, palpitations, shortness of breath Special Instructions: Follow up with [employer] Diet Continue normal diet: Yes Recommended Diet: Heart Healthy Activity Full Activity/No Limits: Yes Acute Coronary Syndrome Inclusion Criteria At DC or during hospital stay patient has or had the following: ACS DIAGNOSIS No Discharge Core Measures Meds if any: Prescribed or Continued at Discharge Meds if any: NOT Prescribed or Continued at Discharge Congestive Heart Failure Inclusion Criteria At DC or during hospital stay patient has or had the following: CHF DIAGNOSIS No Discharge Core Measures Meds if any: Prescribed or Continued at Discharge Meds if any: NOT Prescribed or Continued at Discharge Cerebrovascular accident Inclusion Criteria At DC or during hospital stay patient has or had the following: CVA/TIA Diagnosis No Discharge Core Measures Meds if any: Prescribed or Continued at Discharge Meds if any: NOT Prescribed or Continued at Discharge Venous thromboembolism Inclusion Criteria VTE Diagnosis No VTE Type NONE VTE Confirmed by (Test) NONE Discharge Core Measures - Per Current guidelines, there needs to be overlap - treatment for the first 5 days of Warfarin therapy. - If discharged on Warfarin prior to 5 days of - overlap therapy, the patient will need to be - assessed for post discharge needs including - *Post discharge parental anticoagulation - *Warfarin and/or parental anticoagulation education - *Follow up date to check INR post discharge At least 5 days overlap therapy as Inpatient No Meds if any: Prescribed or Continued at Discharge Note: Overlap Therapy is Warfarin and Anticoagulant Meds if any: NOT Prescribed or Continued at Discharge
[2017-11-06 22:57] VITALS: BP 160/70
[2017-11-07 02:55] LABS: PTT 66 SEC (25-37)
--- NOTE | 2017-11-07 07:14 | PN- Housestaff ---
WilfridLyndamiranda 11/07/17 0713: Subjective Follow-up For: Exertional chest pain Subjective: Overnight patient's heart rate was between 49 and 71 normal sinus rhythm and sinus bradycardia. This morning patient has no complaint of, denies chest pain dizziness, confusion, lightheadedness, shortness of breath, fever, night sweats, chills. Review of Systems Constitutional: Reports: see HPI. Objective Last 24 Hrs of Vital Signs/I&O Vital Signs Date Time Temp Pulse Resp B/P B/P Pulse O2 O2 Flow FiO2 Mean Ox Delivery Rate 11/07 0755 49 160/88 11/07 0734 98.1 49 18 140/68 98 Room Air 11/06 2257 98.2 60 20 160/70 98 11/06 2200 60 160/70 11/06 1505 98.1 66 2 156/70 98 Room Air 11/06 1130 97.8 63 20 138/58 96 Room Air 11/06 0954 97.0 68 20 137/65 96 11/06 0945 97.0 68 20 137/65 / 0945 97.0 68 20 137/65 08/ 0945 97.0 68 20 137/65 11/06 0817 98.4 60 20 128/65 98 Room Air Intake & Output 11/07 1600 11/07 0800 11/07 0000 Intake Total 450 Output Total 400 440 Balance -400 10 Intake, Oral 450 Output, Urine 400 440 Physical Exam General Appearance: Alert, Oriented X3, Cooperative Cardiovascular: Regular Rate, Normal S1, Normal S2, LINQ ON LEFT CHEST Lungs: Clear to Auscultation, Normal Air Movement Abdomen: Normal Bowel Sounds, Soft, No Tenderness Assessment/Plan Assessment: 72 year old male with PMH of HTN and DM presents with acute onset substernal chest pain relieved with nitroglycerin admitted for unstable angina. Patient #Exertional chest pain: Unknown etiology, patient has multiple risk factors for CAD, along with abnormal stress test completely recently in the outpatient setting with Dr. Salinas's office. Tropnonins are negative in house -Patient will require cardiac catheterization, and possible PCI. Will be transferred to [facility] today -Hold Losartan 100mg -NPO for cardiac catheterization at [facility] today with Dr. Cano -continue heparin drip -Clopidogrel loading dose with 375mg given 11/06/17 -continue clopidogrel 75 mg HTN: -Continue HCTZ 25mg -Continue amlodipine 10mg -Will hold ARB for cardiac catherterization on 11/07/17 #Hyperlipidemia -Atorvastatin 40mg #DM: -Hold metformin -Accuchecks TIDAC/HS -Novolog sliding scale insulin #GERD: -Continue famotidine #Gout: -Continue allopurinol Heart healthy diet DVT ppx-heparin gtt Full code We will transfer patient to [facility] today excepting physician is Dr. Cano who will also perform cardiac catheterization on patient today. Patient is being transferred on heparin drip, Plavix 75 mg atorvastatin 40 mg and metoprolol 12.5 mg twice daily. Discussed bradycardia with cardiology today, states patient is safe to continue metoprolol even the patient was bradycardic he was asymptomatic. Problem List: 1. Exertional chest pain Pain Ratin Pain Location: n/a Pain Goal: Remain pain free Pain Plan: tylenol Tomorrow's Labs & Rationales: none Joelle RAPHAEL,Dioni 11/07/17 1101: Attending MD Review Statement Attending Statement Attending MD Statement: examined this patient, discuss w/resident/PA/WATER SOFTENER SERVICER AND INSTALLER, agreed w/resident/PA/WATER SOFTENER SERVICER AND INSTALLER, reviewed EMR data (avail), discussed with nursing, discussed with case mgmt, amended to note Attending Assessment/Plan: Patient seen and examined. Resting comfortably not in any acute distress. Denies chest pain or shortness of breath. Denies palpitations. Denies lightheadedness. Was started on beta-rocío therapy yesterday. He did have transient episode of bradycardia in the high 40s last night. He was asymptomatic. Case discussed with cardiology service today. Plan is to proceed with transfer to [facility] for cardiac catheterization today. Patient is in agreement with this plan. Further disposition will be determined after the procedure at [facility].
[2017-11-07 07:34] VITALS: BP 140/68
[2017-11-07 07:55] VITALS: BP 160/88
[2017-11-07] MEDS ORDERED: ATORVASTATIN CA40 M1 PO (07:56)
[2017-11-07] MEDS ORDERED: METOPROLOL TART25 M1 PO (07:56)
[2017-11-07] MEDS ORDERED: PLAVIX75 M1 PO (07:56)
--- NOTE | 2017-11-07 09:08 | PN- Cardiology ---
Subjective Subjective: Patient feels well. He denies chest pain or shortness of breath. Review of Systems: Eyes no blurred or double vision Ears no deafness or ringing Nose and throat no recurrent sinusitis Lungs per history of present illness Heart per history of present illness Abdomen no nausea vomiting Musculoskeletal occasional muscle and joint pains Psych no anxiety or depression Neuro without recurrent headache or seizures Endocrine no heat or cold intolerance Objective Vital Signs and I&Os Vital Signs Date Time Temp Pulse Resp B/P B/P Pulse O2 O2 Flow FiO2 Mean Ox Delivery Rate 11/07 0755 49 160/88 11/07 0734 98.1 49 18 140/68 98 Room Air 11/06 2257 98.2 60 20 160/70 98 11/06 2200 60 160/70 11/06 1505 98.1 66 2 156/70 98 Room Air 11/06 1130 97.8 63 20 138/58 96 Room Air 11/06 0954 97.0 68 20 137/65 96 11/06 0945 97.0 68 20 137/65 11/06 0945 97.0 68 20 137/65 11/06 0945 97.0 68 20 137/65 Intake & Output 11/07 1600 11/07 0800 11/07 0000 11/06 1600 11/06 0800 11/06 0000 Intake Total 450 400 380 Output Total 400 440 600 300 Balance -400 10 -200 80 Intake, Oral 450 400 380 Output, Urine 400 440 600 300 Patient 212 lb 212 lb Weight Physical Exam: Patient is a well-developed well-nourished male appearing in no acute distress HEENT is unremarkable Neck is supple there is no JVD Lungs are clear Heart regular rhythm S1 and S2 are normal no murmurs gallops or rubs Abdomen bowel sounds positive Extremities without edema Neuro without focal deficits Psych normal mentation Skin no lesions Current Medications: Current Medications Sig/Fior Start time Last Medication Dose Route Stop Time Status Admin Acetaminophen 650 MG Q6P PRN 11/05 2100 AC 11/06 PO 0534 Allopurinol 300 MG DAILY 11/06 09 AC 11/07 PO 0756 Amlodipine Besylate 10 MG DAILY 11/06 09 AC 11/07 PO 0755 Aspirin Buffered 81 MG DAILY 11/06 09 AC 11/07 PO 0755 Atorvastatin Calcium 40 MG 1700 11/06 1700 AC 11/06 PO 1700 Clopidogrel Bisulfate 75 MG DAILY 08/21 0900 AC 11/07 PO 0755 Clopidogrel Bisulfate 300 MG ONE TIME ONE 11/06 1445 DC 11/06 PO 11/06 1446 1700 Clopidogrel Bisulfate 75 MG DAILY 11/06 1437 CAN PO Famotidine 20 MG BID 11/06 0900 AC 11/07 PO 0755 Heparin Sodium 0 .STK-MED ONE 11/06 2134 DC (Porcine) .ROUTE Heparin Sodium 25,000 UNIT Q24H 11/05 1745 AC 11/06 (Porcine) IV 1015 Sodium Chloride 500 ML Hydrochlorothiazide 25 MG DAILY 11/06 0900 AC 11/07 PO 0755 Losartan Potassium 100 MG DAILY 11/06 0900 DC 11/06 PO 0945 Metoprolol Tartrate 12.5 MG BID 11/06 0900 AC 11/06 PO 2200 Nitroglycerin 0 .STK-MED ONE 11/06 1225 DC TOP Nitroglycerin 0.5 GM Q6 11/05 1800 AC 11/07 TOP 0603 Results Last 48 Hrs of Labs/Mics: Laboratory Tests 11/07/17 0215: APTT 66 H 11/06/17 1659: APTT 34 11/06/17 0908: APTT 91 H 11/06/17 0550: Anion Gap 7, Estimated GFR > 60, BUN/Creatinine Ratio 20.0, Magnesium 2.5 H, Troponin I < 0.01, Triglycerides 124, Cholesterol 203 H, LDL Cholesterol, Calc 141 H, HDL Cholesterol 38 L, Cholesterol/HDL Ratio 5 H, CBC w Diff NO MAN DIFF REQ, RBC 3.73 L, MCV 96.5 H, MCH 32.4 H, MCHC 33.6, RDW 14.1, MPV 8.4, Gran % 44.5, Lymphocytes % 41.1, Monocytes % 10.2 H, Eosinophils % 3.8, Basophils % 0.4, Absolute Granulocytes 3.5, Absolute Lymphocytes 3.2, Absolute Monocytes 0.8 H, Absolute Eosinophils 0.3, Absolute Basophils 0 11/06/17 0127: Troponin I < 0.01, APTT 50 H 11/05/17 2109: APTT Cancelled 11/05/17 1803: PT 11.2, INR 1.03, APTT 31 11/05/17 1737: Anion Gap 10, Estimated GFR > 60, BUN/Creatinine Ratio 22.7, Glucose 152 H, Calcium 9.9, Phosphorus 3.5, Magnesium 2.4 H, Total Bilirubin 0.4, AST 32, ALT 37, Alkaline Phosphatase 78, Troponin I < 0.01, Total Protein 7.9, Albumin 4.5, Globulin 3.4, Albumin/Globulin Ratio 1.3, CBC w Diff NO MAN DIFF REQ, RBC 3.83 L, MCV 96.7 H, MCH 32.9 H, MCHC 34.0, RDW 13.9, MPV 8.5, Gran % 63.3, Lymphocytes % 23.4, Monocytes % 10.2 H, Eosinophils % 2.8, Basophils % 0.3, Absolute Granulocytes 5.5, Absolute Lymphocytes 2.0, Absolute Monocytes 0.9 H, Absolute Eosinophils 0.2, Absolute Basophils 0 Telemetry personally reviewed sinus bradycardia Assessment/Plan Assessment/Plan 1. Chest pain, new onset with recent outpatient positive stress test 2. History of recurrent syncope status post implantable loop recorder with no recent abnormal events 3. History of hypertension 4. History of diabetes 5. History of gout Recommendations 1. As previously discussed with the patient plan is to proceed with cardiac catheterization today at [facility] with possible PCI 2. Continue IV heparin, aspirin, and statin 3. To arrange for transfer call [facility] Y access at Continue telemetry? Yes
[2017-11-07] MEDS ORDERED: [UNRECOGNIZED DRUG - CODE] IV (10:37)
[2017-11-07] MEDS ORDERED: ASPIRIN EC81 M1 PO (10:37)
== END 2017-11-07 11:45 | disposition short-term general hospital (02) | DRG 313 ==
LOC: ERH 16:16 → ERHI 18:43 → CANRESERV 23:22 → ENRESERV 23:22 → ERHI 11-06 07:32 → ENRESERV 11-06 09:13 → ENTRNSPT 11-06 10:32 → EDTRNSPT 11-06 10:40 → EDTRNSPTSTS 11-06 10:40 → 1NO 11-06 10:49 → CMPTRNSPT 11-06 10:54 → 1NO 11-07 11:45
PROVIDERS: General Practice; Internal Medicine; Physician Assistant; Preventive Medicine Public Health & General Preventive Medicine
DX: R07.9 Chest pain, unspecified (principal); E11.9 Type 2 diabetes mellitus without complications; I10 Essential (primary) hypertension; M10.9 Gout, unspecified; K21.9 Gastro-esophageal reflux disease without esophagitis; F17.290 Nicotine dependence, other tobacco product, uncomplicated; Z95.818 Presence of other cardiac implants and grafts
CPT/HCPCS: 1NP; ERO; 36415; 36592; 71046; 82436; 93005; 93010; 96374; J1644; J3490